=== PATIENT | male | born 1980 | race Caucasian/White ===

== ENCOUNTER 2023-05-12 10:10 | Outpatient (CLI) | payer OTHER, SELFPAY | END 2023-05-12 10:11 | disposition home or self-care (01) | PROVIDERS: PCP Family Medicine; Visit Provider Family Medicine | DX: Z00.00 Encounter for general adult medical examination without abnormal findings (principal); I49.9 Cardiac arrhythmia, unspecified; Z13.6 Encounter for screening for cardiovascular disorders; Z11.59 Encounter for screening for other viral diseases | CPT/HCPCS: 80053; 80061; 84443; 86803 ==

== ENCOUNTER 2023-06-29 20:33 | Outpatient (CLI) | payer OTHER, SELFPAY ==
--- NOTE | 2023-07-07 11:42 | W.PM.SLEEP ---
Sleep Study Details Details Interpreting Provider: Santana Date of Sleep Study: 06/29/23 Sleep Study Details: STUDY TYPE:? Hospital-based ? BMI:? 26.1 ORDERING PROVIDER:? Alex INDICATION:? Concerns about sleep apnea ? SLEEP SUMMARY:? 314 minutes total sleep time RESPIRATORY SUMMARY:? Mean oxygen awake 94 asleep 94, minimum 87, 0.6 minutes oxygen between 80 and 88% AHI 13.4, RDI 19.7 Supine AHI 24.7, supine REM AHI 27.5 nonsupine RDI 6.6 PERIODIC LIMB MOVEMENTS OF SLEEP:? Index 16.1, index with arousal 0.4 CARDIAC:? Awake 64, asleep 60. PVCs and PACs were noted IMPRESSION:? Moderate obstructive sleep apnea with an RDI of 19.7 AHI of 13.4. There was supine position dependency RECOMMENDATION: AutoSet CPAP at a pressure of 4-17. Other treatment options would include dental appliance, positional therapy and/or airway expansion surgery.
== END 2023-06-29 20:34 | disposition home or self-care (01) ==
PROVIDERS: PCP Family Medicine; Visit Provider Family Medicine
DX: G47.33 Obstructive sleep apnea (adult) (pediatric) (principal)
CPT/HCPCS: 95810